=== PATIENT | male | born 1940 | race Caucasian/White ===

== ENCOUNTER 2020-11-12 11:26 | Observation (INO) ==
[2020-11-12 12:35] LABS: Basophils % 0.1 %; Eosinophils # 0.4 K/mcL (0.0-0.6); Eosinophils % 4.6 %; Hematocrit 39.4 % (37.5-50.1); Hemoglobin 12.9 g/dL (12.9-16.9); Immature Granulocytes % 0.2 % (0-4); Lymphocytes # 1.1 K/mcL (0.6-4.6); Mean Corpuscular HGB Conc 32.7 g/dL (31.6-35.5); Mean Corpuscular Volume 88.5 fL (83.0-100.0); Mean Platelet Volume 9.9 fL (9.4-12.4); Monocytes # 0.9 K/mcL (0.0-1.3); Monocytes % 10.3 %; Neutrophils # 6.1 K/mcL (1.6-8.9); Platelet Count 196 K/mcL (140-400); Red Blood Count 4.45 M/mcL (4.19-5.50); Segmented Neutrophils % 71.8 %; White Blood Count 8.6 K/mcL (4.3-11.1)
[2020-11-12 12:40] LABS: VBG HCO3 26 mEq/L (21-27); VBG PCO2 48 mmHg (41-51); VBG PH 7.34 pH Units (7.32-7.42); VBG PO2 29 mmHg (25-50)
[2020-11-12 12:49] LABS: INR 1.2; Prothrombin Time 13.3 Seconds (9.4-12.1)
[2020-11-12 12:57] LABS: Alanine Aminotransferase 24 Units/L (7-52); Albumin 3.6 g/dL (3.5-5.7); Albumin/Globulin Ratio 1.2 (1.1-2.2); Alkaline Phosphatase 109 Units/L (34-104); Aspartate Amino Transferase 18 Units/L (13-39); BUN/Creatinine Ratio 17 (6-26); Bilirubin,Direct 0.2 mg/dL (0.0-0.2); Bilirubin,Indirect 0.6 mg/dL (0.0-1.0); Bilirubin,Total 0.8 mg/dL (0.3-1.0); Blood Urea Nitrogen 22 mg/dL (8-23); Calcium 8.6 mg/dL (8.6-10.3); Carbon Dioxide 27 mEq/L (23-29); Chloride 101 mEq/L (98-107); Globulin 2.9 g/dL (2.4-3.5); Glucose 145 mg/dL (70-105); Osmolality,Calculated 284 (280-300); Potassium 4.2 mEq/L (3.5-5.1); Sodium 134 mEq/L (136-145); Total Protein 6.5 g/dL (6.4-8.9); eGFR For African Americans > 60 (> 60); eGFR For Non-African Americans 53 (> 60)
[2020-11-12] MEDS ORDERED: Isovue-370 500 ML BOTTLE IVP ONE (13:00)
[2020-11-12 13:02] LABS: Troponin I < 0.03 ng/mL (< 0.04)
[2020-11-12] MEDS ORDERED: methylPREDNISolone 125 MG/2 ML VIAL IVP ONE (14:25)
[2020-11-12] MEDS ORDERED: levoFLOXacin 500 MG/100 ML 500 MG/100 ML BAG IVPB ONE (14:27)
[2020-11-12] MEDS ORDERED: Ondansetron 4 MG/2 ML VIAL IVP PRN (17:38)
[2020-11-12] MEDS ORDERED: Ibuprofen 400 MG TABLET PO PRN (17:38)
[2020-11-12] MEDS ORDERED: MOM Conc 10 ML UD.LIQ PO PRN (17:38)
[2020-11-12] MEDS ORDERED: Acetaminophen 325 MG TABLET PO PRN (17:38)
[2020-11-12] MEDS ORDERED: Naloxone 0.4 MG/ML INJ IVP PRN (17:38)
[2020-11-12] MEDS ORDERED: Ondansetron ODT 4 MG TAB.RAPDIS SL PRN (17:38)
[2020-11-12] MEDS ORDERED: Mag Hydrox/Al Hydrox/Simeth 30 ML UDC PO PRN (17:38)
[2020-11-12] MEDS ORDERED: Dextrose Gel 15 GM/37.5 ML TUBE PO PRN ×2 (18:37)
[2020-11-12] MEDS ORDERED: D5% in Water 1,000 ML IVC PRN (18:37)
[2020-11-12] MEDS ORDERED: *HR* Dextrose 50 % in Water (Vial) 50 ML VIAL IVP PRN (18:37)
[2020-11-12] MEDS: MethylPREDNISolone 40 MG/ML VIAL IVP SCH (20:15)
[2020-11-12] MEDS: Gabapentin 300 MG CAPSULE PO SCH (20:45)
[2020-11-12] MEDS: Sacubitril/Valsartan 24/26 MG 1 TABLET PO SCH (20:45)
[2020-11-12] MEDS: Metoprolol XL (24 HR) Succ 50 MG TAB.ER.24H PO SCH (20:45)
[2020-11-12] MEDS: Insulin DETEMIR 100 UNIT/ML per UNIT SUBQ SCH (20:48)
[2020-11-12] MEDS ORDERED: Insulin LISPRO 300 UNITS/3 ML VIAL SUBQ SCH (21:00)
[2020-11-12] MEDS ORDERED: Sacubitril/Valsartan 24/26 MG 1 TABLET PO SCH (21:00)
[2020-11-12] MEDS ORDERED: INSULIN DEGLUDEC 50 UNIT SQ SCH (21:00)
[2020-11-12] MEDS: Ipratropium/Albuterol Neb 3 ML IH SCH (21:55)
[2020-11-12] MEDS ORDERED: Insulin DETEMIR 100 UNIT/ML per UNIT SUBQ SCH (22:15)
[2020-11-12] MEDS ORDERED: Insulin DETEMIR 100 UNIT/ML X5UNITS SUBQ SCH (22:15)
[2020-11-13] MEDS: Insulin DETEMIR 100 UNIT/ML per UNIT SUBQ SCH (00:01)
[2020-11-13] MEDS: MethylPREDNISolone 40 MG/ML VIAL IVP SCH ×5 (00:05→22:39)
[2020-11-13] MEDS: Ipratropium/Albuterol Neb 3 ML IH SCH ×4 (04:37→21:07)
[2020-11-13] MEDS: *HR* Enoxaparin 40 MG/0.4 ML SYRINGE SQ SCH (05:17)
[2020-11-13 05:21] LABS: Hematocrit 37.7 % (37.5-50.1); Hemoglobin 12.4 g/dL (12.9-16.9); Immature Granulocytes % 0.6 % (0-4); Lymphocytes # 0.6 K/mcL (0.6-4.6); Mean Corpuscular HGB Conc 32.9 g/dL (31.6-35.5); Mean Corpuscular Hemoglobin 28.6 pg (28.0-33.3); Mean Corpuscular Volume 86.9 fL (83.0-100.0); Mean Platelet Volume 10.4 fL (9.4-12.4); Monocytes # 0.1 K/mcL (0.0-1.3); Monocytes % 0.8 %; Platelet Count 177 K/mcL (140-400); Red Blood Count 4.34 M/mcL (4.19-5.50); Red Cell Distribution Width 13.8 % (11.5-14.5); Segmented Neutrophils % 90.6 %; White Blood Count 7.7 K/mcL (4.3-11.1)
[2020-11-13 05:38] LABS: Albumin 3.3 g/dL (3.5-5.7); Albumin/Globulin Ratio 1.2 (1.1-2.2); Bilirubin,Total 0.7 mg/dL (0.3-1.0); Calcium 8.5 mg/dL (8.6-10.3); Globulin 2.7 g/dL (2.4-3.5); Phosphorous 3.5 mg/dL (2.7-4.5); Potassium 4.8 mEq/L (3.5-5.1)
[2020-11-13] MEDS ORDERED: Insulin DETEMIR 100 UNIT/ML X5UNITS SUBQ SCH (09:00)
[2020-11-13] MEDS: Insulin LISPRO 300 UNITS/3 ML VIAL SUBQ SCH ×3 (09:47→17:40)
[2020-11-13] MEDS: Sacubitril/Valsartan 24/26 MG 1 TABLET PO SCH ×2 (09:51→20:11)
[2020-11-13] MEDS: Aspirin 81 MG TAB.CHEW PO SCH (09:51)
[2020-11-13] MEDS: Gabapentin 300 MG CAPSULE PO SCH ×3 (09:51→20:17)
[2020-11-13] MEDS ORDERED: Perflutren Lipid Microsphere 1.3 ML in 0.9 % Sodium Chloride 8.7 ML IVP PRN (09:52)
[2020-11-13] MEDS: Metoprolol XL (24 HR) Succ 50 MG TAB.ER.24H PO SCH ×2 (09:52→20:17)
[2020-11-13] MEDS: Finasteride 5 MG TABLET PO SCH (09:52)
[2020-11-13 11:16] LABS: Bilirubin,Urine Negative (Negative); Blood,Urine Negative (Negative); Clarity,Urine Clear (Clear); Color,Urine Yellow (Yellow); Glucose,Urine (UA) >=1000 mg/dL (Normal); Ketones,Urine Negative (Negative); Leukocyte Esterase,Urine Negative (Negative); Nitrite,Urine Negative (Negative); Protein,Urine 30 mg/dL (Neg-Trace); Specific Gravity,Urine 1.025 (1.010-1.025); Urobilinogen,Urine Normal (Normal)
[2020-11-13 11:23] LABS: WBC,Urine 0-3 per hpf (0-3)
[2020-11-13] MEDS ORDERED: levoFLOXacin 500 MG/100 ML 500 MG/100 ML BAG IVPB SCH (15:00)
[2020-11-13] MEDS ORDERED: Menthol 9.1 MG LOZENGE PO PRN (16:10)
[2020-11-13] MEDS ORDERED: Insulin LISPRO 300 UNITS/3 ML VIAL SUBQ SCH (16:20)
[2020-11-13] MEDS ORDERED: Insulin DETEMIR 100 UNIT/ML per UNIT SUBQ SCH (21:00)
[2020-11-14] MEDS: Ipratropium/Albuterol Neb 3 ML IH SCH ×2 (03:53→10:29)
[2020-11-14 04:53] LABS: Mean Corpuscular HGB Conc 33.3 g/dL (31.6-35.5); Mean Corpuscular Hemoglobin 29.1 pg (28.0-33.3); Mean Corpuscular Volume 87.4 fL (83.0-100.0); Mean Platelet Volume 10.2 fL (9.4-12.4); Platelet Count 199 K/mcL (140-400); Red Blood Count 4.12 M/mcL (4.19-5.50); Red Cell Distribution Width 14.3 % (11.5-14.5); White Blood Count 15.6 K/mcL (4.3-11.1)
[2020-11-14] MEDS: MethylPREDNISolone 40 MG/ML VIAL IVP SCH ×2 (05:12→12:29)
[2020-11-14] MEDS: *HR* Enoxaparin 40 MG/0.4 ML SYRINGE SQ SCH (05:12)
[2020-11-14 05:15] LABS: Albumin 3.4 g/dL (3.5-5.7); Albumin/Globulin Ratio 1.3 (1.1-2.2); Bilirubin,Total 0.5 mg/dL (0.3-1.0); Calcium 8.6 mg/dL (8.6-10.3); Globulin 2.7 g/dL (2.4-3.5); Magnesium 2.1 mg/dL (1.6-2.6); Potassium 4.1 mEq/L (3.5-5.1); Total Protein 6.1 g/dL (6.4-8.9)
[2020-11-14] MEDS: Insulin LISPRO 300 UNITS/3 ML VIAL SUBQ SCH ×2 (08:02→12:28)
[2020-11-14] MEDS: Metoprolol XL (24 HR) Succ 50 MG TAB.ER.24H PO SCH (08:03)
[2020-11-14] MEDS: Finasteride 5 MG TABLET PO SCH (08:03)
[2020-11-14] MEDS: Aspirin 81 MG TAB.CHEW PO SCH (08:03)
[2020-11-14] MEDS: Gabapentin 300 MG CAPSULE PO SCH (08:03)
[2020-11-14] MEDS: Sacubitril/Valsartan 24/26 MG 1 TABLET PO SCH (08:03)
[2020-11-14] MEDS ORDERED: Insulin DETEMIR 100 UNIT/ML per UNIT SUBQ ONE (09:25)
[2020-11-14 12:19] VITALS: BP 144/73
[2020-11-14 13:28] LABS: Estimated Average Glucose 240 mg/dl
[2020-11-14] MEDS ORDERED: levoFLOXacin 500 MG TABLET PO ONE (14:20)
[2020-11-15] MEDS ORDERED: Insulin DETEMIR 100 UNIT/ML X5UNITS SUBQ SCH (09:00)
== END 2020-11-14 15:00 | disposition home or self-care (01) ==
LOC: EMEROOGRE 11:26 → INPGRE 11:26
PROVIDERS: ADMIT Family Medicine; ATTEND Family Medicine